=== PATIENT | male | born 1990 | race African-American/Black ===

== ENCOUNTER 2024-03-25 09:00 | Inpatient (IN) | payer OTHER ==
[2024-03-25 09:29] VITALS: BMI 25.7
[2024-03-25] MEDS ORDERED: BENZOCAINE/MENTHOL (CHLORASEPTIC ) LOZENGE MM PRN (10:20)
[2024-03-25] MEDS ORDERED: MAG HYDROX/AL HYDROX/SIMETH 30 ML UNIT-DOSE CUP PO PRN (10:20)
[2024-03-25] MEDS ORDERED: DOCUSATE SODIUM 100 MG CAPSULE (FP) PO PRN (10:20)
[2024-03-25] MEDS ORDERED: NICOTINE POLACRILEX 2 MG GUM BUC PRN (10:20)
[2024-03-25] MEDS ORDERED: POLYETHYLENE GLYCOL (HEALTHYLAX) 3350 17 GM PACKET PO PRN (10:20)
[2024-03-25] MEDS ORDERED: MAGNESIUM HYDROX 2400MG/30ML ORAL SUSPENSION 30 ML CUP PO PRN (10:20)
[2024-03-25] MEDS ORDERED: BENZONATATE 200 MG CAPSULE PO PRN (10:20)
[2024-03-25] MEDS ORDERED: guaiFENesin 600 MG TABLET.ER (FP) PO PRN (10:20)
[2024-03-25] MEDS ORDERED: NICOTINE POLACRILEX 2 MG LOZENGE BC PRN (10:20)
[2024-03-25] MEDS ORDERED: LOPERAMIDE HCL 2 MG CAPSULE PO PRN (10:20)
[2024-03-25] MEDS ORDERED: NALOXONE (NARCAN) HCL 4 MG/0.1 ML SPRAY NS PRN (10:20)
[2024-03-25] MEDS ORDERED: BISACODYL 5 MG TABLET.DR (FP) PO PRN (10:20)
[2024-03-25] MEDS ORDERED: IBUPROFEN 400 MG TABLET (FP) PO PRN (10:20)
[2024-03-25] MEDS ORDERED: ACETAMINOPHEN 325 MG TABLET (FP) PO PRN (10:20)
[2024-03-25] MEDS: TUBERCULIN PPD 5 TU/0.1ML SYRINGE (IN PATIENT USE ONLY) ID ONE (13:25)
[2024-03-25] MEDS: IBUPROFEN 600 MG TABLET (FP) PO PRN (13:34)
[2024-03-25] MEDS: hydrOXYzine PAMOATE 25 MG CAPSULE (FP) PO PRN (13:34)
[2024-03-25] MEDS: MELATONIN 5 MG TABLETS PO SCH (22:50)
[2024-03-25] MEDS: THIAMINE 100 MG TABLET PO SCH (22:50)
[2024-03-26 06:24] VITALS: BP 106/71; PULSE 70; RESP 20; TEMP 97.5
[2024-03-26 10:07] LABS: POTASSIUM 4.2 mmol/L (3.5-5.1)
[2024-03-26 10:09] LABS: ALBUMIN 3.3 g/dl (3.4-5.0); HEMATOCRIT 42.2 % (35.4-49); MCH 31.8 pg (25.7-33.7); MEAN CELL VOLUME 96.2 fl (80-96); MEAN PLT VOLUME 9.3 fl (7.5-11.1); PLATELET COUNT 223 10^3/uL (134-434); RBC 4.39 M/mm3 (4.00-5.60); RDW 12.7 % (11.9-15.9); WHITE BLOOD COUNT 5.3 K/mm3 (4.0-10.0)
[2024-03-26 10:10] LABS: BLOOD UREA NITROGEN 18.1 mg/dL (7-18); CALCIUM 8.4 mg/dL (8.5-10.1)
[2024-03-26 10:13] LABS: CREATININE 1.2 mg/dL (0.55-1.3)
[2024-03-26 10:16] LABS: BILIRUBIN,TOTAL 0.9 mg/dL (0.2-1)
[2024-03-26] MEDS: PRENATAL VITAMINS W/ FOLIC ACID TABLET (FP) PO SCH (10:30)
== END 2024-03-26 11:14 | disposition left against medical advice (07) | DRG 770 ==
LOC: YASAS 09:00 → Y3NR 11:23
PROVIDERS: ADMIT Neuromusculoskeletal Medicine & OMM; ATTEND Psychiatry & Neurology Pain Medicine
PROC: HZ42ZZZ Group Counseling for Substance Abuse Treatment, Cognitive-Behavioral (ICD-10-PCS; principal; 2024-03-25)
DX: F14.20 Cocaine dependence, uncomplicated (principal); F17.210 Nicotine dependence, cigarettes, uncomplicated; F31.9 Bipolar disorder, unspecified; Z56.0 Unemployment, unspecified; Z59.01 Sheltered homelessness
CPT/HCPCS: 36415; 80053; 80164; 80305; 80307; 85027; 86780; 93005; 93010